=== PATIENT | female | born 2000 | race Caucasian/White ===

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

== ENCOUNTER 2018-05-22 14:04 | Emergency (ER) | payer BC ==
[2018-05-22 14:58] VITALS: BP 136/87
--- NOTE | 2018-05-22 15:25 | UC ---
Eye Complaint HPI - HPI Summary HPI Summary: Patient presents for questionable pinkeye. She states that she awoke this morning with her left thigh red and draining. She states that the eye was sealed shut this morning. She denies any history of injury, eye pain, visual loss and she does not use contact lenses. She does admit to having an upper respiratory infection last week and has a little residual cough. - History of Current Complaint Chief Complaint: UCEye Stated Complaint: LEFT EYE COMPLAINT Time Seen by Provider: 05/22/18 15:14 Hx Obtained From: Patient Hx Last Menstrual Period: ~09/04/17 Onset/Duration: Gradual Onset Timing: Constant Pain Intensity: 0 Aggravating Factor(s): Nothing Associated Signs And Symptoms: Positive: Drainage (Purulent). Negative: Photophobia, Vision Impairment Bilateral, Fever, Swelling - Risk Factors Penetrating Injury Risk Factor: Negative Globe Rupture Risk Factors: Negative Acute Glaucoma Risk Factors: Negative Optic Artery Occlusion Risk Factors: Negative - Allergies/Home Medications Allergies/Adverse Reactions: Allergies Allergy/AdvReac Type Severity Reaction Status Date / Time No Known Allergies Allergy Verified 05/22/18 14:53 PMH/Surg Hx/FS Hx/Imm Hx Previously Healthy: Yes - Surgical History Surgical History: None - Family History Known Family History: Positive: None Negative: Diabetes - Social History Occupation: Student Lives: Dormitory/Roommates Alcohol Use: Occasionally Substance Use Type: Marijuana Substance Use Comment - Amount & Last Used: occasional Smoking Status (MU): Never Smoked Tobacco - Immunization History Vaccination Up to Date: Yes Review of Systems Constitutional: Negative Skin: Negative Eyes: Drainage, Eye Redness ENT: Negative Respiratory: Cough Cardiovascular: Negative Gastrointestinal: Negative Genitourinary: Negative Motor: Negative Neurovascular: Negative Musculoskeletal: Negative Neurological: Negative Psychological: Negative Is Patient Immunocompromised?: No All Other Systems Reviewed And Are Negative: Yes Physical Exam Triage Information Reviewed: Yes Appearance: Well-Appearing Vital Signs: Initial Vital Signs Temp 98.1 F 05/22/18 14:52 Pulse 93 05/22/18 14:52 Resp 14 05/22/18 14:52 BP 136/87 05/22/18 14:52 Pulse Ox 100 05/22/18 14:52 Vital Signs Reviewed: Yes Eyes: Positive: Other: - No periorbital edema or erythema. No auricular adenopathy. Conjunctiva on the left is mildly injected with some yellow crusting. Upper and lower lids everted no foreign bodies. Pupils are round reactive to light extraocular movements are intact. Extraocular movements are painless. Anterior chambers are clear. ENT: Positive: Pharynx normal, TMs normal. Negative: Nasal congestion, Nasal drainage Neck: Positive: Supple, Nontender, No Lymphadenopathy Respiratory: Positive: Lungs clear, Normal breath sounds Cardiovascular: Positive: RRR, No Murmur Abdomen Description: Positive: Nontender, No Organomegaly, Soft Bowel Sounds: Positive: Present Musculoskeletal: Positive: ROM Intact Neurological: Positive: Alert Psychological: Positive: Age Appropriate Behavior Skin Exam: Normal Skin: Negative: rashes Eye Complaint Course/Dx - Course Course Of Treatment: Nontoxic. No concern for corneal ulcers, abrasions or foreign bodies. - Differential Dx/Diagnosis Provider Diagnoses: Conjunctivitis left eye Discharge - Sign-Out/Discharge Documenting (check all that apply): Patient Departure All imaging exams completed and their final reports reviewed: No Studies - Discharge Plan Condition: Stable Disposition: HOME Prescriptions: Erythromycin OPTH OINT* [Erythromycin 0.5% OPTH OINT*] 1 applic LEFT EYE TID #1 ophth.oint Patient Education Materials: Conjunctivitis (ED) Referrals: [facility] [Outside] - 5 Days - Billing Disposition and Condition Condition: STABLE Disposition: Home
== END 2018-05-22 15:32 | disposition home or self-care (01) ==
LOC: UCCORT 14:04
DX: H10.9 Unspecified conjunctivitis (principal)
CPT/HCPCS: 99212; G0463

== ENCOUNTER 2018-11-19 10:13 | Emergency (ER) | payer BC ==
[2018-11-19 11:11] VITALS: BP 132/84
--- NOTE | 2018-11-19 11:58 | UC ---
Throat Pain/Nasal Fran HPI - HPI Summary HPI Summary: sore throat x 1 day nasal congestion , cough , pnd no fever, + chills, mild body aches - History of Current Complaint Chief Complaint: UCRespiratory Stated Complaint: ST,SINUS CONGESTION Time Seen by Provider: 11/19/18 11:27 Hx Obtained From: Patient Hx Last Menstrual Period: 10/19/18 Onset/Duration: Gradual Onset, Lasting Days - 1, Still Present Severity: Moderate Pain Intensity: 7 Cough: Nonproductive Associated Signs & Symptoms: Positive: Nasal Discharge. Negative: Dysphagia, FB Sensation, Drooling, Wheezing, Hoarseness, Sinus Discomfort, Fever, Vomiting , Rash - Allergies/Home Medications Allergies/Adverse Reactions: Allergies Allergy/AdvReac Type Severity Reaction Status Date / Time No Known Allergies Allergy Verified 11/19/18 11:11 Home Medications: Home Medications Ascorbic Acid [Vitamin C] 1 tab PO DAILY 11/19/18 [History Confirmed 11/19/18] Biotin 1 mg PO DAILY 11/19/18 [History Confirmed 11/19/18] Cetirizine HCl [Zyrtec] 1 tab PO ONCE PRN 11/19/18 [History Confirmed 11/19/18] Dm/PE/Acetaminophen/Doxylamine [Vicks Dayquil-Nyquil Cold-Flu] 1 each PO ONCE PRN 11/19/18 [History Confirmed 11/19/18] PMH/Surg Hx/FS Hx/Imm Hx Previously Healthy: Yes - Surgical History Surgical History: None - Family History Known Family History: Positive: None Negative: Diabetes - Social History Alcohol Use: Rare Substance Use Type: Marijuana Substance Use Comment - Amount & Last Used: occasional Smoking Status (MU): Never Smoked Tobacco - Immunization History Vaccination Up to Date: Yes Review of Systems All Other Systems Reviewed And Are Negative: Yes Constitutional: Positive: Negative Skin: Positive: Negative Eyes: Positive: Negative ENT: Positive: Sore Throat, Nasal Discharge Respiratory: Positive: Cough Cardiovascular: Positive: Negative Is Patient Immunocompromised?: No Physical Exam Triage Information Reviewed: Yes Appearance: Well-Appearing, No Pain Distress, Well-Nourished Vital Signs: Initial Vital Signs Temp 98.1 F 11/19/18 11:07 Pulse 95 11/19/18 11:07 Resp 18 11/19/18 11:07 BP 132/84 11/19/18 11:07 Pulse Ox 100 04/02/19 11:07 Vital Signs Reviewed: Yes Eye Exam: Normal Eyes: Positive: Conjunctiva Clear ENT: Positive: Normal ENT inspection, Hearing grossly normal, Pharyngeal erythema, Nasal congestion, TMs normal, TM bulging, TM dull, TM red. Negative: Nasal drainage Neck: Positive: Supple, Nontender, No Lymphadenopathy Respiratory: Positive: Chest non-tender, Lungs clear, Normal breath sounds Cardiovascular: Positive: RRR, No Murmur, Pulses Normal Skin Exam: Normal Throat Pain/Nasal Course/Dx - Differential Dx/Diagnosis Provider Diagnosis: URI (upper respiratory infection) Discharge - Sign-Out/Discharge Documenting (check all that apply): Patient Departure All imaging exams completed and their final reports reviewed: No Studies - Discharge Plan Condition: Stable Disposition: HOME Patient Education Materials: Upper Respiratory Infection (DC) Forms: *School Release Referrals: No Primary Care Phys,NOPCP [Primary Care Provider] - If Needed - Billing Disposition and Condition Condition: STABLE Disposition: Home
== END 2018-11-19 12:06 | disposition home or self-care (01) ==
LOC: UCCORT 10:13
DX: J06.9 Acute upper respiratory infection, unspecified (principal)
CPT/HCPCS: 87651; 99211; G0463

== ENCOUNTER 2019-06-29 12:40 | Emergency (ER) | payer BC ==
[2019-06-29 13:06] VITALS: BP 120/57
--- NOTE | 2019-06-29 13:19 | UC ---
Respiratory Complaint HPI - HPI Summary HPI Summary: 19 year old female presents with her boyfriend with a complaint of sore throat x1 week. Her friend was diagnosed w/ mono 2-3 weeks ago and is concerned for mono. No fever, chills nor swollen glands. Will occasionally cough, non- productive. - History of Current Complaint Chief Complaint: UCRespiratory Stated Complaint: ST Time Seen by Provider: 06/29/19 13:01 Hx Last Menstrual Period: 06/10/19 Pain Intensity: 8 - Allergies/Home Medications Allergies/Adverse Reactions: Allergies Allergy/AdvReac Type Severity Reaction Status Date / Time No Known Allergies Allergy Verified 06/29/19 13:01 Home Medications: Home Medications Norethindrone-E.estradiol-Iron [Blisovi 24 Fe Tablet] 1 tab QPM 06/29/19 [ History Confirmed 06/29/19] PMH/Surg Hx/FS Hx/Imm Hx Previously Healthy: Yes - Surgical History Surgical History: None - Family History Known Family History: Positive: None Negative: Diabetes - Social History Occupation: Student Alcohol Use: Rare Substance Use Type: Marijuana Substance Use Comment - Amount & Last Used: occasional Smoking Status (MU): Never Smoked Tobacco - Immunization History Vaccination Up to Date: Yes Review of Systems All Other Systems Reviewed And Are Negative: Yes Constitutional: Positive: Negative Skin: Negative: Rash Eyes: Positive: Negative ENT: Positive: Sore Throat. Negative: Nasal Discharge, Sinus Congestion, Sinus Pain/Tenderness Respiratory: Positive: Cough - slight. Negative: Shortness Of Breath Cardiovascular: Negative: Palpitations, Chest Pain Gastrointestinal: Negative: Abdominal Pain, Vomiting, Diarrhea, Nausea Genitourinary: Positive: Negative Neurovascular: Positive: Negative Musculoskeletal: Positive: Negative Neurological: Positive: Negative Psychological: Positive: Negative Is Patient Immunocompromised?: No Physical Exam Appearance: Well-Appearing Vital Signs: Initial Vital Signs Temp 98.9 F 06/29/19 13:02 Pulse 83 06/29/19 13:02 Resp 16 06/29/19 13:02 BP 120/57 06/29/19 13:02 Pulse Ox 98 06/29/19 13:02 Vital Signs Reviewed: Yes Eye Exam: Normal ENT: Positive: Pharynx normal, Nasal congestion, TMs normal, Uvula midline. Negative: Muffled voice, Sinus tenderness Neck: Positive: Supple, Nontender, No Lymphadenopathy Respiratory: Positive: Lungs clear, Normal breath sounds, No respiratory distress Cardiovascular: Positive: RRR, No Murmur Abdomen Description: Positive: Nontender, Soft Neurological Exam: Normal Psychological Exam: Normal Skin: Negative: Rashes Respiratory Course/Dx - Differential Dx/Diagnosis Provider Diagnosis: Upper respiratory infection, viral Discharge ED - Sign-Out/Discharge Documenting (check all that apply): Patient Departure All imaging exams completed and their final reports reviewed: No Studies - Discharge Plan Condition: Stable Disposition: HOME Patient Education Materials: Upper Respiratory Infection (ED) Referrals: No Primary Care Phys,NOPCP [Primary Care Provider] - Additional Instructions: Drink plenty of fluids, take Tylenol or ibuprofen over the counter for pain. Follow-up if your symptoms persist or worsen. If your mono test is positive, you will be contacted later in the week. - Billing Disposition and Condition Condition: STABLE Disposition: Home
== END 2019-06-29 13:39 | disposition home or self-care (01) ==
LOC: UCCORT 12:40
DX: J06.9 Acute upper respiratory infection, unspecified (principal)
CPT/HCPCS: 36415; 86308; 87651; 99211; G0463